=== PATIENT | male | born 1955 | race Two or more races ===

== ENCOUNTER 2019-07-11 06:13 | Emergency (ER) | payer OTHER ==
[~2019-07-11] VITALS: Ht 162.6 cm; Wt 79.5 kg
[~2019-07-11 06:13] MED LIST: HYDR-3237 PO; LOVA40TA2 PO; METF500T PO; OMEG-13 PO
[2019-07-11 06:17] VITALS: BP 114/77
[2019-07-11] MEDS ORDERED: OXYcodone/APAP 5/325MG TABLET PO ONE (06:30)
[2019-07-11] MEDS ORDERED: IBUPROFEN 600 MG TABLET PO ONE (06:30)
--- NOTE | 2019-07-11 06:37 | NUR ---
Pt alert and resting on gurney. Pt reports facial swelling and pain x2 days. Pt denies fevers and vomiting. Swelling noted to left cheek/jaw.
[2019-07-11] MEDS ORDERED: OXYcodone/APAP 5/325MG TABLET ONE (06:39)
[2019-07-11] MEDS ORDERED: IBUPROFEN 600 MG TABLET ONE (06:39)
--- NOTE | 2019-07-11 06:44 | NUR ---
Pt medicated per JUL. Pt on pulse ox/HR monitor.
--- NOTE | 2019-07-11 06:53 | NUR ---
Report given to ESPERANZA Anderson
--- NOTE | 2019-07-11 07:31 | NUR ---
DISCHARGE INSTRUCTIONS REVIEWED.
== END 2019-07-11 07:34 | disposition home or self-care (01) ==
LOC: ED 07:00
DX: K04.7 Periapical abscess without sinus (principal); E78.00 Pure hypercholesterolemia, unspecified
CPT/HCPCS: 99283

== ENCOUNTER 2019-07-12 09:59 | Emergency (ER) | payer OTHER ==
[~2019-07-12] VITALS: Ht 162.6 cm; Wt 78.7 kg
--- NOTE | 2019-07-12 10:27 | NUR ---
THIS IS A 64 YO M W/ C/O LT SIDED FACIAL SWELLING THAT STARTED LAST NIGHT. PT IS CONVERSING IN FULL SENTENCES. MUSCLE STRENGTH EQUAL BILAT. VS WDL. PT RESTING ON STEPHIE Pryor/ AT BEDSIDE. CALL LIGHT IN REACH. AWAITING ORDERS.
--- NOTE | 2019-07-12 10:53 | NUR ---
PIV STARTED. PT REPORTS PAIN IN HIS LEFT FACE ONLY.
[2019-07-12 11:00] LABS: BASOPHILS # (AUTO) 0.04 x10^3/uL (0-0.1); BASOPHILS % (AUTO) 0 % (0-1); EOSINOPHILS # (AUTO) 0.03 x10^3/uL (0-0.4); EOSINOPHILS % (AUTO) 0 % (1-7); LYMPHOCYTES # (AUTO) 1.33 x10^3/uL (1-3.4); LYMPHOCYTES % (AUTO) 14 % (22-44); MD NO; MEAN CORPUSCULAR HEMOGLOBIN 28.7 pg (27.5-34.5); MEAN CORPUSCULAR HGB CONC 33.2 g/dL (33.2-36.2); MEAN CORPUSCULAR VOLUME 86.6 fL (81-97); MEAN PLATELET VOLUME 8.6 fL (7.4-10.4); MONOCYTES # (AUTO) 0.82 x10^3/uL (0.2-0.8); MONOCYTES % (AUTO) 9 % (2-9); NEUTROPHILS # (AUTO) 7.37 x10^3/uL (1.8-6.8); NEUTROPHILS % (AUTO) 77 % (42-75); PLATELET COUNT 198 x10^3/uL (130-400); RED BLOOD COUNT 5.01 x10^6/uL (4.38-5.82); RED CELL DISTRIBUTION WIDTH 15.4 % (9.4-14.8)
--- NOTE | 2019-07-12 11:08 | NUR ---
PT AMBULATED TO THE BR W/ A STEADY GAIT.
[2019-07-12 11:09] LABS: ANION GAP 6 mmol/L (5-15); CALCIUM 8.6 mg/dL (8.5-10.1); CHLORIDE 113 mmol/L (98-107); CREATININE 0.77 mg/dL (0.7-1.3)
[2019-07-12] MEDS ORDERED: OMNIPAQUE 350 MG/ML, 75ML BOTTLE ONE (12:17)
--- NOTE | 2019-07-12 12:32 | NUR ---
ALL TESTS RESULTED. PT IS UP FOR RECHECK AT THIS TIME.
--- NOTE | 2019-07-12 12:53 | NUR ---
TASK RN: MED REQUESTED FROM PHARMACY
[2019-07-12] MEDS ORDERED: CLINDAMYCIN 150 MG CAPSULE PO ONE (13:00)
--- NOTE | 2019-07-12 13:09 | NUR ---
TASK RN: MEDS ADMIN PER JUL.
[2019-07-12 13:12] VITALS: BP 113/74
== END 2019-07-12 13:15 | disposition home or self-care (01) ==
LOC: ED 10:28
DX: K02.9 Dental caries, unspecified (principal); L03.211 Cellulitis of face; R51 Headache; E78.00 Pure hypercholesterolemia, unspecified
CPT/HCPCS: 36415; 70487; 80048; 85025; 99285; Q9967; 82962